=== PATIENT | female | born 1950 | race Caucasian/White ===

== ENCOUNTER 2016-06-15 09:36 | Observation (INO) | payer MEDICARE ==
[~2016-06-15] VITALS: Ht 162.6 cm; Wt 58.3 kg
[2016-06-15] VITALS (7 sets, daily range): BP systolic 129–171; BP diastolic 68–90; PULSE 77–81; RESP 16; TEMP 97.4–98.7; O2SAT 94–99
[2016-06-15 09:54] LABS: BLOOD, URINE SMALL (NEG); GLUCOSE,URINE NEG (NEG); KETONE, URINE NEG (NEG); NITRITE,URINE NEG (NEG)
[2016-06-15] MEDS ORDERED: SODIUM CHLOR 0.9% 1000 ML INJ 1,000 ML IV SCH (09:57)
[2016-06-15 09:59] LABS: METHOD OF COLLECTION CLEAN CATCH; URINE COLOR YELLOW (YELLW/STRAW)
--- NOTE | 2016-06-15 09:59 | PD ---
HPI Chief Complaint: Abdominal Pain Time Seen by Provider: 09:49 Travel History International Travel<30 days: No Contact w/Intl Traveler<30days: No Traveled to known affect area: No History of Present Illness HPI This is a 66-year-old female who presents to the emergency department with abdominal pain. She says that last night she started to develop pain in her mid abdomen that wrapped around to her lower back, constant, severe, associated with several episodes of vomiting. She says she felt a little bit warm. He denies any dysuria, frequency, urgency, diarrhea or constipation. Her last bowel movement was yesterday and was normal. She's not had any abdominal surgeries. She has no medical problems. She's never had pain like this before. She says this morning her symptoms have improved but she does feel lethargic and exhausted. She says the pain is still somewhat persistent but milder than yesterday. PFSH Past Medical History Medical History: Denies Significant Hx Hx Anticoagulant Therapy: No Diabetes: No ?: Not Past Surgical History Hysterectomy: No Social History Tobacco Use: Yes (half a pack a day) Allergies-Medications (Allergen,Severity, Reaction): Coded Allergies: No Known Allergies (Unverified , 06/15/16) Reported Meds & Prescriptions Reported Meds & Active Scripts Active No Active Prescriptions or Reported Medications Review of Systems Except as stated in HPI: all other systems reviewed are Neg Physical Exam Narrative GENERAL:Well appearing, no acute distress SKIN: Warm and dry. HEAD: Atraumatic. Normocephalic. EYES: Pupils equal and round. No injection or drainage. ENT: Moist mucous membranes NECK: Trachea midline. CARDIOVASCULAR: Regular rate and rhythm. No murmur appreciated. RESPIRATORY: Clear to auscultation. Breath sounds equal bilaterally. GASTROINTESTINAL: Abdomen soft, mildly tender to palpation in the suprapubic region with no rebound or guarding. MUSCULOSKELETAL: No obvious deformities. NEUROLOGICAL: Awake and alert. No obvious cranial nerve deficits. Moving all extremities. PSYCHIATRIC: Appropriate mood and affect; insight and judgment normal. Data Data Last Documented VS Vital Signs Date Time Temp Pulse Resp B/P Pulse Ox O2 Delivery O2 Flow Rate FiO2 06/15/16 11:25 80 16 164/74 99 Room Air 06/15/16 09:39 98.7 Orders Urinalysis - C+S If Indicated (06/15/16 09:44) Complete Blood Count With Diff (06/15/16 09:57) Comprehensive Metabolic Panel (06/15/16 09:57) Lipase (06/15/16 09:57) Lactic Acid (06/15/16 09:57) Ct Abd/Pel W Iv Contrast(Rout) (06/15/16 09:57) Iv Access Insert/Monitor (06/15/16 09:57) Ecg Monitoring (06/15/16 09:57) Oximetry (06/15/16 09:57) Sodium Chlor 0.9% 1000 Ml Inj (Ns 1000 M (06/15/16 09:57) Sodium Chloride 0.9% Flush (Ns Flush) (06/15/16 10:00) Iohexol 300 Inj (Rad Ct) (Omnipaque 300 (06/15/16 10:52) Piperacil-Tazo 3.375 Gm Premix (Zosyn 3. (06/15/16 11:30) Admit Order (Ed Use Only) (06/15/16 11:48) Labs Laboratory Tests Test 06/15/16 06/15/16 06/15/16 09:50 10:10 10:15 Urine Collection Type CLEAN CATCH Urine Color YELLOW Urine Turbidity CLEAR Urine pH 6.0 Urine Specific [place] 1.021 Urine Protein NEG mg/dL Urine Glucose (UA) NEG mg/dL Urine Ketones NEG mg/dL Urine Occult Blood SMALL Urine Nitrite NEG Urine Bilirubin NEG Urine Leukocyte Esterase NEG Urine RBC 10-14 /hpf Urine Squamous Epithelial 0-5 /hpf Cells Microscopic Urinalysis Comment CULT NOT INDICATED Urine Collection Time 09:50 White Blood Count 11.4 TH/MM3 Red Blood Count 4.82 MIL/MM3 Hemoglobin 14.4 GM/DL Hematocrit 44.8 % Mean Corpuscular Volume 93.0 FL Mean Corpuscular Hemoglobin 29.9 PG Mean Corpuscular Hemoglobin 32.2 % Concent Red Cell Distribution Width 13.6 % Platelet Count 277 TH/MM3 Mean Platelet Volume 8.9 FL Neutrophils (%) (Auto) 74.4 % Lymphocytes (%) (Auto) 19.1 % Monocytes (%) (Auto) 3.9 % Eosinophils (%) (Auto) 0.9 % Basophils (%) (Auto) 1.7 % Neutrophils # (Auto) 8.5 TH/MM3 Lymphocytes # (Auto) 2.2 TH/MM3 Monocytes # (Auto) 0.4 TH/MM3 Eosinophils # (Auto) 0.1 TH/MM3 Basophils # (Auto) 0.2 TH/MM3 CBC Comment DIFF FINAL Differential Comment Sodium Level 143 MEQ/L Potassium Level 4.2 MEQ/L Chloride Level 108 MEQ/L Carbon Dioxide Level 27.4 MEQ/L Anion Gap 8 MEQ/L Blood Urea Nitrogen 20 MG/DL Creatinine 0.72 MG/DL Estimat Glomerular Filtration 81 ML/MIN Rate Random Glucose 134 MG/DL Calcium Level 9.2 MG/DL Total Bilirubin 0.4 MG/DL Aspartate Amino Transf 16 U/L (AST/SGOT) Alanine Aminotransferase 18 U/L (ALT/SGPT) Alkaline Phosphatase 122 U/L Total Protein 7.7 GM/DL Albumin 3.6 GM/DL Lipase 134 U/L Lactic Acid Level 1.6 mmol/L [facility] Medical Decision Making Medical Screen Exam Complete: Yes Emergency Medical Condition: Yes Interpretation(s) Afebrile, no tachycardia, normotensive Mild leukocytosis with left shift Electrolytes within normal limits Lactic acid 1.6 Lipase normal Urinalysis: Blood in the urine Differential Diagnosis Pyelonephritis, nephrolithiasis, appendicitis, diverticulitis, colitis Narrative Course This is a 66-year-old female who presents to the emergency department with abdominal pain, vomiting and decreased appetite. She is placed in a monitor and an IV was established. Labs were obtained which demonstrated a mild leukocytosis. Urinalysis demonstrates some blood. CT abdomen and pelvis demonstrates a dilated appendix with no inflammatory changes. I do think this reflects an early appendicitis although her history is not classic. I spoke to Dr. Dennis who is on-call for surgery. He like to evaluate the patient at the [facility] for possible surgical intervention. Patient will be transferred there for surgical evaluation. Physician Communication Physician Communication Discussed with Dr. Dennis Diagnosis Primary Impression: Abdominal pain Qualified Code: R10.33 - Periumbilical abdominal pain Admitting Information Admitting Physician Requests: Observation Scripts No Active Prescriptions or Reported Meds Maribell Willson MD Jun 15, 2016 09:59
[2016-06-15 10:00] LABS: COMMENT (UR) CULT NOT INDICATED; CULTURE IF INDICATED CULT NOT INDICATED; SQUAMOUS EPITHELIAL CELL URINE 0-5 /hpf (0-5)
[2016-06-15] MEDS ORDERED: SODIUM CHLORIDE 0.9% FLUSH 5 ML FLUSH IVF PRN (10:00)
[2016-06-15 10:18] LABS: AUTOMATED NEUTROPHIL # 8.5 TH/MM3 (1.8-7.7); BASOPHIL # 0.2 TH/MM3 (0-0.2); BASOPHIL % 1.7 % (0.0-2.0); EOSINOPHIL # 0.1 TH/MM3 (0-0.4); EOSINOPHIL % 0.9 % (0.0-4.0); HEMATOCRIT 44.8 % (35.0-46.0); LYMPH % 19.1 % (9.0-44.0); LYMPHOCYTE # 2.2 TH/MM3 (1.0-4.8); MEAN CORPUSCULAR HEMOGLOBIN 29.9 PG (27.0-34.0); MEAN CORPUSCULAR HGB CONC 32.2 % (32.0-36.0); MONO % 3.9 % (0.0-8.0); NEUT % 74.4 % (16.0-70.0); PLATELET COUNT 277 TH/MM3 (150-450); RED BLOOD COUNT 4.82 MIL/MM3 (4.00-5.30); RED CELL DISTRIBUTION WIDTH 13.6 % (11.6-17.2); WHITE BLOOD COUNT 11.4 TH/MM3 (4.0-11.0)
[2016-06-15 10:23] LABS: HEMO FLAGS DIFF FINAL
[2016-06-15 10:26] LABS: CHLORIDE 108 MEQ/L (98-107); POTASSIUM 4.2 MEQ/L (3.5-5.1); SODIUM (NA) 143 MEQ/L (136-145)
[2016-06-15 10:28] LABS: BLOOD UREA NITROGEN 20 MG/DL (7-18)
[2016-06-15 10:29] LABS: ANION GAP 8 MEQ/L (5-15); BICARBONATE 27.4 MEQ/L (21.0-32.0)
[2016-06-15 10:32] LABS: ALT (GPT) 18 U/L (10-53)
[2016-06-15 10:33] LABS: AST (GOT) 16 U/L (15-37); GLOMERULAR FILTRATION RATE 81 ML/MIN (>89)
[2016-06-15 10:35] LABS: ALKALINE PHOSPHATASE 122 U/L (45-117)
[2016-06-15 10:36] LABS: TOTAL BILIRUBIN ADULT 0.4 MG/DL (0.2-1.0)
[2016-06-15] MEDS ORDERED: ePHEDrine/NS 50 MG/5 ML SYR IV ONE (10:45)
[2016-06-15] MEDS ORDERED: PROPOFOL 200 MG/20 ML AMP IV ONE (10:45)
[2016-06-15] MEDS ORDERED: PHENYLEPH/NS 1000 MCG/10 ML SYR IV ONE (10:45)
[2016-06-15] MEDS ORDERED: ONDANSETRON HCL 4 MG/2 ML VIAL IV PUSH ONE (10:45)
[2016-06-15] MEDS ORDERED: NEOSTIGMINE 3 MG/3 ML SYR IV ONE (10:45)
[2016-06-15] MEDS ORDERED: IOHEXOL 300 MG/ML 100 ML BTL (for Rad CT) IV ONE (10:52)
--- NOTE | 2016-06-15 11:17 | RADHPO ---
EXAM DATE/TIME: 06/15/2016 10:46 [place] COMPARISON: No previous studies available for comparison. INDICATIONS : Umbilical pain since last night. IV CONTRAST: 90 cc Omnipaque 300 (iohexol) IV ORAL CONTRAST: No oral contrast ingested. RADIATION DOSE: 6.74 CTDIvol (mGy) MEDICAL HISTORY : None SURGICAL HISTORY : Ureteral stent. Hemorrhoidectomy. ENCOUNTER: Initial ACUITY: 2 days PAIN SCALE: 3/10 LOCATION: abdomen/pelvis TECHNIQUE: Volumetric scanning of the abdomen and pelvis was performed. Using automated exposure control and ad justment of the mA and/or kV according to patient size, radiation dose was kept as low as reasonably achievable to obtain optimal diagnostic quality images. FINDINGS: LOWER LUNGS: The visualized lower lungs are clear. LIVER: Homogeneous density without lesion. There is no dilation of the biliary tree. No calcified gallston es. SPLEEN: Normal size without lesion. PANCREAS: Within normal limits. KIDNEYS: Normal in size and shape. There is no mass, stone or hydronephrosis. ADRENAL GLANDS: Within normal limits. VASCULAR: Atherosclerotic calcifications in abdominal aorta and branch vessels. No aneurysm. Incidental retroao rtic left renal vein. BOWEL/MESENTERY: The appendix appears dilated measuring approximately 10 mm. There are no convincing periappendiceal i nflammatory changes and no free fluid is identified. The bowel is otherwise unremarkable. No evidence of obstruction. ABDOMINAL WALL: Within normal limits. RETROPERITONEUM: There is no lymphadenopathy. BLADDER: No wall thickening or mass. REPRODUCTIVE: Within normal limits. INGUINAL: There is no lymphadenopathy or hernia. MUSCULOSKELETAL: Within normal limits for patient age. CONCLUSION: Mildly dilated appendix worrisome for early appendicitis. Isma Escobedo MD on June 15, 2016 at 10:55 Board Certified Radiologist. This report was verified electronically.
[2016-06-15] MEDS ORDERED: PIPERACIL-TAZO 3.375 GM PREMIX 50 ML IV ONE ×2 (11:30→18:15)
[2016-06-15] MEDS ORDERED: MORPHINE SULFATE 4 MG/ML INJ IV PUSH PRN (12:00)
[2016-06-15] MEDS ORDERED: MORPHINE SULFATE 4 MG/ML INJ IV PRN (12:00)
[2016-06-15] MEDS ORDERED: SODIUM CHLORIDE 0.9% FLUSH 5 ML FLUSH IV PRN (12:00)
[2016-06-15] MEDS ORDERED: ONDANSETRON HCL 4 MG/2 ML VIAL IV PRN (12:00)
[2016-06-15] MEDS: SODIUM CHLOR 0.9% 1000 ML INJ 1,000 ML IV SCH ×2 (12:59→22:20)
--- NOTE | 2016-06-15 16:17 | HHI.HP ---
HPI Service General Surgery Primary Care Physician Non-Staff Admission Diagnosis abdominal pain Chief Complaint: Abdominal pain History of Present Illness This is a 66-year-old female on vacation from [place] with her family who presents with abdominal pain. She began to have mid abdominal pain yesterday afternoon. This worsened throughout the day and especially last night became more severe. It was associated with emesis. She has had decreased oral intake. The pain got somewhat better today. She has had kidney stones in the past but this feels like different pain. She was evaluated and performed emergency department and noted to have leukocytosis and a CT scan showing an enlarged appendix. She has never had any abdominal surgery. Review of Systems Constitutional: COMPLAINS OF: Fatigue, DENIES: Fever, Chills Eyes: DENIES: Eye inflammation, Eye pain Respiratory: DENIES: Cough, Wheezing Cardiovascular: DENIES: Chest pain, Palpitations Gastrointestinal: COMPLAINS OF: Abdominal pain, Vomiting Integumentary: DENIES: Pruritus, Rash Past Family Social History Past Medical History Kidney stones Past Surgical History Hemorrhoidectomy Ureteral stents Reported Medications None Allergies: Coded Allergies: No Known Allergies (Unverified , 06/15/16) Active Ordered Medications Current Medications Medications (Trade) Dose Ordered Sig/Ingrid Route Start Time Stop Time Status Last Admin (NS 1000 ml Inj) 1,000 ml @ 100 mls/hr Q10H IV 06/15/16 11:50 06/15/16 12:59 (NS Flush) 2 ml UNSCH PRN IV 06/15/16 12:00 (NS Flush) 2 ml BID IV 06/15/16 21:00 (Morphine Inj) 4 mg Q3H PRN IV 06/15/16 12:00 (Zofran Inj) 4 mg Q6H PRN IV 06/15/16 12:00 06/15/16 13:01 (Morphine Inj) 2 mg Q3H PRN IV PUSH 06/15/16 12:00 Family History Noncontributory Social History She smokes one half pack of cigarettes daily. Occasional alcohol use. She lives in [place] and is on vacation. Physical Exam Vital Signs Vital Signs Date Time Temp Pulse Resp B/P Pulse Ox O2 Delivery O2 Flow Rate FiO2 06/15/16 15:30 98.3 78 16 131/68 98 06/15/16 14:44 80 16 171/73 97 06/15/16 11:25 80 16 164/74 99 Room Air 06/15/16 10:16 16 98 Room Air 06/15/16 10:16 77 16 161/75 98 Room Air 06/15/16 09:39 98.7 81 16 129/69 94 Physical Exam GENERAL: Awake and alert. No acute distress. Cooperative. HEAD: Normocephalic. Atraumatic. EYES: Pupils equal round and reactive to light bilaterally. No scleral icterus. CHEST: Lungs clear to auscultation bilaterally with no wheezing or rhonchi. No respiratory distress. CARDIOVASCULAR: Regular rate and rhythm. ABDOMEN: Soft. No previous surgical incisions. Moderate tenderness to deep palpation in the right lower quadrant at McBurney's point. Otherwise soft and nontender. No rebound or guarding. EXTREMITIES: No cyanosis or edema. SKIN: Warm, dry, nonjaundiced. Laboratory Laboratory Tests Test 06/15/16 06/15/16 06/15/16 09:50 10:10 10:15 Urine Collection Type CLEAN CATCH Urine Color YELLOW Urine Turbidity CLEAR Urine pH 6.0 Urine Specific [place] 1.021 Urine Protein NEG Urine Glucose (UA) NEG Urine Ketones NEG Urine Occult Blood SMALL Urine Nitrite NEG Urine Bilirubin NEG Urine Leukocyte Esterase NEG Urine RBC 10-14 Urine Squamous Epithelial 0-5 Cells Microscopic Urinalysis Comment CULT NOT INDICATED Urine Collection Time 09:50 White Blood Count 11.4 Red Blood Count 4.82 Hemoglobin 14.4 Hematocrit 44.8 Mean Corpuscular Volume 93.0 Mean Corpuscular Hemoglobin 29.9 Mean Corpuscular Hemoglobin 32.2 Concent Red Cell Distribution Width 13.6 Platelet Count 277 Mean Platelet Volume 8.9 Neutrophils (%) (Auto) 74.4 Lymphocytes (%) (Auto) 19.1 Monocytes (%) (Auto) 3.9 Eosinophils (%) (Auto) 0.9 Basophils (%) (Auto) 1.7 Neutrophils # (Auto) 8.5 Lymphocytes # (Auto) 2.2 Monocytes # (Auto) 0.4 Eosinophils # (Auto) 0.1 Basophils # (Auto) 0.2 CBC Comment DIFF FINAL Differential Comment Sodium Level 143 Potassium Level 4.2 Chloride Level 108 Carbon Dioxide Level 27.4 Anion Gap 8 Blood Urea Nitrogen 20 Creatinine 0.72 Estimat Glomerular Filtration 81 Rate Random Glucose 134 Calcium Level 9.2 Total Bilirubin 0.4 Aspartate Amino Transf 16 (AST/SGOT) Alanine Aminotransferase 18 (ALT/SGPT) Alkaline Phosphatase 122 Total Protein 7.7 Albumin 3.6 Lipase 134 Lactic Acid Level 1.6 Result Diagram: 06/15/16 1010 06/15/16 1010 Imaging Last Impressions Abdomen/Pelvis CT 06/15/16 0957 Signed Impressions: Service Date/Time: Wednesday, June 15, 2016 10:46 - CONCLUSION: Mildly dilated appendix worrisome for early appendicitis. Isma Escobedo MD Assessment and Plan Assessment and Plan 66 old female with abdominal pain and evaluation consistent with acute appendicitis. I would recommend to proceed with laparoscopic appendectomy possible open at this time. I discussed the details and the risks of the procedure with the patient and she understands and desires to proceed. She has been administered Zosyn in the emergency department. Siva Dennis MD Jun 15, 2016 16:16
[2016-06-15] MEDS ORDERED: HYDROmorphone HCL PF 2 MG/ML VIAL ONE (17:14)
[2016-06-15] MEDS ORDERED: FAMOTIDINE 20 MG/2 ML VIAL ONE (17:17)
[2016-06-15] MEDS ORDERED: MIDAZOLAM HCL 2 MG/2 ML VIAL ONE (17:18)
[2016-06-15] MEDS ORDERED: fentaNYL CITRATE 250 MCG/5 ML AMP ONE (17:18)
[2016-06-15] MEDS ORDERED: BUPIVACAINE/EPINEPHRINE 0.25% 50 ML VIAL INFIL ONE (17:53)
--- NOTE | 2016-06-15 18:27 | PD.OP ---
cc: Siva Dennis MD Operative Report Date of Surgery: Jun 15, 2016 Preoperative Diagnosis: (1) Acute appendicitis Postoperative Diagnosis: (1) Acute appendicitis Procedure: Laparoscopic appendectomy Anesthesia: GETA Surgeon: Siva Dennis Rope Walker(s): Sean ARNOLD Operation and Findings: EBL: 5 cc Complications: None apparent Operative findings: The patient had inflammation and dilated appendix, no exudate or purulent fluid. Procedure in detail: The patient was taken to the operating room placed in the supine position with left arm tucked. General endotracheal anesthesia was induced and the abdomen was prepped and draped in usual sterile fashion. Surgical timeout was performed to verify correct patient procedure and site. Perioperative antibiotics were administered as necessary. Local anesthetic was injected in the skin and subcutaneous tissue at the inferior umbilicus and a 5 mm incision made. Using the 5 mm Optiview trocar with laparoscope the abdomen was directly entered. Was then insufflated to 15 mmHg with CO2 gas which the patient tolerated well. The patient was then placed in Trendelenburg position and turned slightly to the left. A 12 mm port was placed under laparoscopic visualization of the left lower abdomen and a 5 mm port in the suprapubic area. Attention was turned to the right lower quadrant and the appendix was noted to have moderate inflammation and was dilated primarily at the tip. There was no gangrene no purulent fluid. The mesoappendix was taken down with the Harmonic scalpel. Two #1 PDS Endoloops were placed at the base the appendix and the appendix transected with Harmonic scalpel. It was then removed using an Endo Catch bag. The appendiceal stump was intact with no leakage. There was no purulent fluid identified in the abdomen was allowed to desufflate. The fascia at the 12 mm port site was closed with a single 0 Vicryl suture. Skin closed with subcuticular Monocryl as well as Dermabond. The patient tolerated the procedure well was extubated and taken to PACU in stable condition. Siva Dennis MD Jun 15, 2016 18:27
[2016-06-15] MEDS ORDERED: oxyCODONE/ACETAMINOPHEN 5 MG/325 MG TAB PO PRN ×2 (18:30)
[2016-06-15] MEDS ORDERED: *RESP: ALBUTEROL 2.5 MG/3 ML NEB (PRN) PERIprocedural Use ONLY NEB ONE (18:43)
[2016-06-15] MEDS ORDERED: *ONDANSETRON 4 MG VIAL PERIprocedural Use ONLY ONE (19:09)
[2016-06-15] MEDS ORDERED: DO NOT ADM ANY ANTICOAGULANT DRUGS XX PRN (19:15)
[2016-06-15] MEDS ORDERED: *PROMETHAZINE 25 MG/ML VIAL PERIprocedural use ONLY ONE (19:22)
[2016-06-15] MEDS ORDERED: diphenhydrAMINE HCL 50 MG/ML VIAL ONE (19:50)
[2016-06-15] MEDS ORDERED: SCOPOLAMINE 1.5 MG PATCH ONE (19:53)
[2016-06-15] MEDS ORDERED: diphenhydrAMINE HCL 50 MG/ML VIAL IV ONE (20:15)
[2016-06-15] MEDS ORDERED: SCOPOLAMINE 1.5 MG PATCH TD SCH (20:30)
[2016-06-15] MEDS: SODIUM CHLORIDE 0.9% FLUSH 5 ML FLUSH IV SCH (21:00)
[2016-06-16] VITALS: BP 116/60; PULSE 75; RESP 16; TEMP 98.2; O2SAT 97
[2016-06-16 04:00] VITALS: BP 123/67; PULSE 95; RESP 16; TEMP 97.8; O2SAT 95
[2016-06-16] MEDS: SODIUM CHLOR 0.9% 1000 ML INJ 1,000 ML IV SCH (05:35)
[2016-06-16 07:45] VITALS: BP 115/59; PULSE 71; RESP 16; TEMP 97; O2SAT 95
[2016-06-16] MEDS: SODIUM CHLORIDE 0.9% FLUSH 5 ML FLUSH IV SCH (08:57)
--- NOTE | 2016-06-16 09:56 | HHI.PR ---
Subjective Subjective Notes Nancy fulls. Pain controlled. Would like to go home. Objective Vitals/I&O Vital Signs Date Time Temp Pulse Resp B/P Pulse Ox O2 Delivery O2 Flow Rate FiO2 06/16/16 07:45 97.0 71 16 115/59 95 06/15/16 21:56 Nasal Cannula 3.00 Labs Laboratory Tests Test 06/15/16 06/15/16 10:10 10:15 White Blood Count 11.4 Red Blood Count 4.82 Hemoglobin 14.4 Hematocrit 44.8 Mean Corpuscular Volume 93.0 Mean Corpuscular Hemoglobin 29.9 Mean Corpuscular Hemoglobin 32.2 Concent Red Cell Distribution Width 13.6 Platelet Count 277 Mean Platelet Volume 8.9 Neutrophils (%) (Auto) 74.4 Lymphocytes (%) (Auto) 19.1 Monocytes (%) (Auto) 3.9 Eosinophils (%) (Auto) 0.9 Basophils (%) (Auto) 1.7 Neutrophils # (Auto) 8.5 Lymphocytes # (Auto) 2.2 Monocytes # (Auto) 0.4 Eosinophils # (Auto) 0.1 Basophils # (Auto) 0.2 CBC Comment DIFF FINAL Differential Comment Sodium Level 143 Potassium Level 4.2 Chloride Level 108 Carbon Dioxide Level 27.4 Anion Gap 8 Blood Urea Nitrogen 20 Creatinine 0.72 Estimat Glomerular Filtration 81 Rate Random Glucose 134 Calcium Level 9.2 Total Bilirubin 0.4 Aspartate Amino Transf 16 (AST/SGOT) Alanine Aminotransferase 18 (ALT/SGPT) Alkaline Phosphatase 122 Total Protein 7.7 Albumin 3.6 Lipase 134 Lactic Acid Level 1.6 Radiology Last Impressions Abdomen/Pelvis CT 06/15/16 0957 Signed Impressions: Service Date/Time: Wednesday, June 15, 2016 10:46 - CONCLUSION: Mildly dilated appendix worrisome for early appendicitis. Isma Escobedo MD Narrative Exam NAD Abd soft, min post op ttp, inc c/d/i A/P Assessment and Plan 66 yo F POD 1 s/p lap appy for acute appendicitis. Stable post op. D/c home. Diet as nancy. Ok to shower and activity as nancy except no driving while on narcotics. Rx for percocet. F/u my office 2 weeks. Sonny,Siva RAMIREZ Jun 16, 2016 09:55
[2016-06-16] MEDS ORDERED: PERC5TAB12 PO (09:57)
--- NOTE | 2016-06-16 11:25 | EKG ---
Date Performed: 06/15/2016 Time Performed: 16:36:38 PTAGE: 66 years EKG: Sinus rhythm POOR R WAVE PROGRESSION, CANNOT EXCLUDE ANTEROSEPTAL INFARCT VERSUS LEAD PLACEMENT ABNORMAL ECG NO PREVIOUS TRACING DOCTOR: Duke Celis Interpretating Date/Time 06/16/2016 11:24:13
[2016-06-18] MEDS ORDERED: REMOVE OLD SCOPOLAMINE PATCH TD SCH (20:30)
== END 2016-06-16 11:41 | disposition home or self-care (01) ==
LOC: PHED 09:36 → PHEDA 11:50 → HOCA 15:20
PROVIDERS: ADMIT Surgery; ATTEND Surgery
DX: K35.80 Unspecified acute appendicitis (principal); R94.31 Abnormal electrocardiogram [ECG] [EKG]; F17.200 Nicotine dependence, unspecified, uncomplicated; Z87.442 Personal history of urinary calculi
CPT/HCPCS: 00840; 44970; 74177; 80053; 81001; 83605; 83690; 85025; 88304; 93005; 94664; 96361; 96374; 99285; G0378; J1170; J1200; J2250; J2270; J2370; J2405; J2543; J2550; J2710; J3010; J7030; J7613; Q9967